=== PATIENT | male | born 1940 | race Caucasian/White ===

== ENCOUNTER 2018-04-05 12:33 | Emergency (ER) | payer MEDICARE, OTHER ==
--- NOTE | 2018-04-05 13:04 | ED Physician Documentation ---
PD HPI NVD - Stated complaint Stated Complaint: WEAKNESS - Chief complaint Chief Complaint: Cardiac - History obtained from History obtained from: Patient - History of Present Illness Timing - onset: Yesterday (he says he has not felt well for couple of weeks, with some indigestion. Reall main illness started yesterday with mid to lower abd pain, nausea and weakness.) Timing - duration: Days (The patient himself gives a poor history. He is somewhat confused and also distracted by his discomfort. His son-in-law supplements the history. The patient states he has not felt well for a week or 2 but is not able to describe it to well. Generally some heartburn and some bloating. However since yesterday is distinctly had general abdominal pain with nausea and some couple of episodes of vomiting. There has been at least one episode of diarrhea. He has felt chilled with some shaking but did not have a recorded fever per se. He has been urinating without any discomfort.) Timing - details: Gradual onset, Waxing and waning, Still present in ED Associated symptoms: Abdominal pain, Loss of appetite. No: Fever (but feels chills), Chest pain, Hematemesis, Melena Contributing factors: No: Sick contact, Bad food, Diabetes Worsened by: Moving, Palpation. No: Breathing Similar symptoms before: Has not had sx before Recently seen: Not recently seen Review of Systems Constitutional: reports: Chills, Myalgias. denies: Fever Nose: denies: Rhinorrhea / runny nose, Congestion Throat: denies: Sore throat Respiratory: denies: Cough GI: reports: Abdominal Pain, Nausea, Vomiting, Diarrhea (at least once overnight) : denies: Dysuria, Frequency Skin: denies: Rash, Lesions Neurologic: reports: Confused (which is not usual for him.). denies: Headache, Head injury PD PAST MEDICAL HISTORY - Past Medical History Cardiovascular: None, Arrhythmia Respiratory: None, Sleep apnea, CPAP use Endocrine/Autoimmune: None GI: GERD : Benign prostate hypertrophy HEENT: None Psych: None, Eating disorder Musculoskeletal: Chronic back pain Derm: None - Past Surgical History Past Surgical History: Yes General: Hiatal hernia repair Ortho: Shoulder arthroplasty, Spine surgery, Other HEENT: Cataracts, Tonsil/Adenoidectomy - Present Medications Home Medications: Ambulatory Orders Medication Instructions Recorded Confirmed Morphine Ir [Morphine] 15 mg PO BID PRN 07/06/13 04/05/18 Omeprazole [PriLOSEC] 20 mg PO BID 07/06/13 04/05/18 Aspirin Chewable [St Ko 81 mg ORAL DAILY 09/01/13 04/05/18 Aspirin] Darbepoetin Dennis in Polysorbat 1 mg PO MAINTENANCE.IV 11/16/14 11/16/14 [Aranesp] Apixaban [Eliquis] 04/05/18 Docusate Sodium 100 mg PO DAILY #30 capsule 04/05/18 - Allergies Allergies/Adverse Reactions: Allergies Allergy/AdvReac Type Severity Reaction Status Date / Time No Known Drug Allergies Allergy Verified 04/05/18 12:42 - Social History Does the pt smoke?: No Smoking Status: Former smoker Does the pt drink ETOH?: No Does the pt have substance abuse?: No - Immunizations Immunizations are current?: Yes PD ED PE NORMAL - Vitals Vital signs reviewed: Yes - General General: Well developed/nourished, Other (somewhat confused and distracted by discomfort; seems uncomfortable from abd pain. denies chest pain. ) - HEENT HEENT: Pharynx benign - Neck Neck: Supple, no meningeal sign, No adenopathy - Cardiac Cardiac: RRR, No murmur - Respiratory Respiratory: No respiratory distress, Clear bilaterally - Abdomen Abdomen: Normal bowel sounds, Soft, No organomegaly, Other (Generally tender but more so in the lower abdomen with some percussion tenderness but no other no obvious rebound tenderness. I do not feel fullness in the suprapubic area. There is no CVA tenderness. Bowel sounds are present and seem normal. I do not feel any hernias in the umbilical nor inguinal area.) - Male Male : Deferred - Rectal Rectal: Deferred - Back Back: No CVA TTP - Derm Derm: Normal color - Extremities Extremities: No tenderness to palpate, Normal ROM s pain, No edema, No calf tenderness / cord - Neuro Neuro: No motor deficit, Normal speech. No: Alert and oriented X 3 Results - Vitals Vitals: Oxygen O2 Source Room air - Labs Labs: Laboratory Tests 04/05/18 04/05/18 04/05/18 13:10 13:10 13:10 WBC 9.4 RBC 2.83 L Hgb 9.7 L Hct 29.3 L MCV 103.6 H MCH 34.4 H MCHC 33.2 RDW 22.9 H Plt Count 221 MPV 9.5 Neut # (Auto) 8.1 H Lymph # (Auto) 0.3 L [place] # (Auto) 0.9 Eos # (Auto) 0.0 Baso # (Auto) 0.1 Absolute Nucleated RBC 0.02 Nucleated RBC % 0.3 Manual Slide Review Indicated Platelet Estimate NORMAL (130-450,000) Platelet Morphology PLATELET CLUMPING RBC Morph Micro Appear 1+ MACROCYTOSIS Sodium 133 L Potassium 4.7 Chloride 102 Carbon Dioxide 24 Anion Gap 7.0 BUN 18 Creatinine 1.1 Estimated GFR (MDRD) 65 L Glucose 124 H Lactic Acid Calcium 8.6 Total Bilirubin 1.2 H AST 71 H ALT 75 H Alkaline Phosphatase 69 Troponin I < 0.04 Total Protein 7.5 Albumin 4.3 Globulin 3.2 Albumin/Globulin Ratio 1.3 Lipase 30 Urine Color Urine Clarity Urine pH Ur Specific [place] Urine Protein Urine Glucose (UA) Urine Ketones Urine Occult Blood Urine Nitrite Urine Bilirubin Urine Urobilinogen Ur Leukocyte Esterase Ur Microscopic Review Urine Culture Comments 04/05/18 04/05/18 13:38 14:10 WBC RBC Hgb Hct MCV MCH MCHC RDW Plt Count MPV Neut # (Auto) Lymph # (Auto) [place] # (Auto) Eos # (Auto) Baso # (Auto) Absolute Nucleated RBC Nucleated RBC % Manual Slide Review Platelet Estimate Platelet Morphology RBC Morph Micro Appear Sodium Potassium Chloride Carbon Dioxide Anion Gap BUN Creatinine Estimated GFR (MDRD) Glucose Lactic Acid 2.0 Calcium Total Bilirubin AST ALT Alkaline Phosphatase Troponin I Total Protein Albumin Globulin Albumin/Globulin Ratio Lipase Urine Color DARK YELLOW Urine Clarity CLEAR Urine pH 5.5 Ur Specific [place] 1.020 Urine Protein NEGATIVE Urine Glucose (UA) NEGATIVE Urine Ketones NEGATIVE Urine Occult Blood TRACE-INTA Urine Nitrite NEGATIVE Urine Bilirubin NEGATIVE Urine Urobilinogen 0.2 (NORMAL) Ur Leukocyte Esterase NEGATIVE Ur Microscopic Review NOT INDICATED Urine Culture Comments NOT INDICATED - Rads (name of study) abd/pelvic CT Radiology: Prelim report reviewed (no acute process. copious stool), See rad report PD MEDICAL DECISION MAKING - ED course Complexity details: reviewed results, considered differential (Consider appendicitis or diverticulitis. He reportedly has had a gallbladder surgery before. Consider urinary source as well and can check a urine test. I think given his pain and tenderness along with some confusion, we will check for sepsis and also lactate level and go to a CT scan of the abdomen. He has a history of A. fib but is not in fibrillation at this time. His EKG appears normal. He reportedly is anticoagulated on Eliquis.), d/w patient Departure - Departure Disposition: 01 Home, Self Care Clinical Impression: Abdominal pain Qualifiers: Abdominal location: lower abdomen, unspecified Qualified Code(s): R10.30 - Lower abdominal pain, unspecified Condition: Stable Record reviewed to determine appropriate education?: Yes Instructions: ED Abdominal Pain Unkn Cause Male Prescriptions: Docusate Sodium 100 mg PO DAILY #30 capsule Comments: Drink lots of fluids. Continue usual medications. Add docusate will softener daily for the next week or 2. Your [address] scan urine test and blood test did not show any obvious acute abnormalities. They did comment on a moderate amount of stool in the colon and rectum and so there may be some stomach pains and cramping related to some constipation. Add the docusate stool softener for that. Recheck if other symptoms develop over the next couple of days as there is the potential he could be starting with a viral illness or some other abnormality that just did not show up on the tests right now. Therefore please return if you're worsening. Discharge Date/Time: 04/05/18 17:42
[2018-04-05] MEDS ORDERED: MORPHINE 10 MG/ML VIAL IVP STA (13:18)
[2018-04-05] MEDS ORDERED: ONDANSETRON 4 MG/2 ML VIAL IVP STA (13:18)
[2018-04-05] MEDS ORDERED: SODIUM CHLORIDE 0.9% 1,000 ML IV ONE (13:18)
[2018-04-05 13:25] LABS: BASOPHILS # (AUTO) 0.1 10^3/uL (0.0-0.1); BASOPHILS % (AUTO) 0.6 %; EOSINOPHILS % (AUTO) 0.3 %; HGB - HEMOGLOBIN 9.7 g/dL (14.0-18.0); LYMPHOCYTES # (AUTO) 0.3 10^3/uL (1.5-3.5); LYMPHOCYTES % (AUTO) 3.3 %; MEAN CORPUSCULAR HEMOGLOBIN 34.4 pg (27.0-31.0); MEAN CORPUSCULAR HGB CONC 33.2 g/dL (32.0-36.0); MEAN CORPUSCULAR VOLUME 103.6 fL (80.0-94.0); MEAN PLATELET VOLUME 9.5 fL (7.4-11.4); MONOCYTES # (AUTO) 0.9 10^3/uL (0.0-1.0); MONOCYTES % (AUTO) 9.5 %; NEUTROPHILS # (AUTO) 8.1 10^3/uL (1.5-6.6); NEUTROPHILS % (AUTO) 86.3 %; PLT - PLATELET COUNT 221 10^3/uL (130-450); RED BLOOD COUNT 2.83 10^6/uL (4.70-6.10); RED CELL DISTRIBUTION WIDTH 22.9 % (12.0-15.0); WHITE BLOOD COUNT 9.4 x10^3/uL (4.8-10.8)
[2018-04-05 13:36] LABS: ALBUMIN 4.3 g/dL (3.2-5.5); ALBUMIN/GLOBULIN RATIO 1.3 (1.0-2.2); BILIRUBIN,TOTAL 1.2 mg/dL (0.2-1.0); CALCIUM 8.6 mg/dL (8.5-10.3); CREATININE 1.1 mg/dL (0.6-1.2); TOTAL PROTEIN 7.5 g/dL (6.7-8.2)
[2018-04-05 14:07] LABS: PLATELET ESTIMATE, MANUAL NORMAL (130-450,000) (NORMAL); PLATELET MORPHOLOGY PLATELET CLUMPING (NORMAL)
[2018-04-05] MEDS ORDERED: IOVERSOL 320 100 ML VIAL IVP ONE ×2 (14:45→15:09)
[2018-04-05 15:31] LABS: BILIRUBIN,URINE NEGATIVE (NEGATIVE); GLUCOSE, URINE (UA) NEGATIVE (NEGATIVE); KETONES,URINE (UA) NEGATIVE (NEGATIVE); LEUKOCYTE ESTERASE, URINE NEGATIVE (NEGATIVE); NITRITE,URINE NEGATIVE (NEGATIVE); OCCULT BLOOD,URINE TRACE-INTA (NEGATIVE); PH,URINE 5.5 PH (5.0-7.5); PROTEIN,URINE NEGATIVE (NEGATIVE); UROBILINOGEN,URINE 0.2 (NORMAL) E.U./dL (NORMAL)
--- NOTE | 2018-04-05 15:31 | CT Report ---
Reason: mid to lower abd pain for couple days Procedure Date: 04/05/2018 Accession Number: [id number] / [id number] Procedure: CT - Abdomen/Pelvis W/ CPT Code: FULL RESULT: EXAM: CT ABDOMEN AND PELVIS EXAM DATE: 04/05/2018 03:08 PM. CLINICAL HISTORY: Mid to lower abd pain for couple days. COMPARISONS: None available. TECHNIQUE: Routine helical CT imaging was performed through the abdomen and pelvis. IV contrast: 90 mL Optiray 320. Enteric contrast: No. Reconstructions: Coronal and sagittal. In accordance with CT protocol optimization, one or more of the following dose reduction techniques were utilized for this exam: automated exposure control, adjustment of mA and/or KV based on patient size, or use of iterative reconstructive technique. FINDINGS: Lung Bases: Unremarkable. Liver: Normal. No masses. Gallbladder/Bile Ducts: The gallbladder surgically absent. There is associated ectasia of the intrahepatic and extrahepatic bile ducts. Spleen: Mildly enlarged measuring 14.0 cm in AP diameter. Pancreas: Normal. Adrenal Glands: Normal. Kidneys: Symmetric renal perfusion. No hydronephrosis or nephrolithiasis. Probable peripelvic cyst in the left kidney measuring 3.4 x 3.2 cm. Probable tiny cortical cyst in the upper pole of the right kidney measuring 6 mm in diameter. Peritoneal Cavity/Bowel: Nonobstructive bowel gas pattern. Moderate volume stool throughout the colon and rectum, which is concentrated distally. The rectum is distended with solid stool. No free air or free fluid. Postoperative changes to the inguinal regions possibly from prior hernia repair. The appendix is well visualized and normal. Pelvic Organs: The prostate is enlarged measuring 4.5 x 6.8 x 6.0 cm. The urinary bladder appears unremarkable. Vasculature: Calcified plaque scattered throughout the abdominal aorta and iliac arteries without evidence of aneurysm. Bones: Degenerative disk disease throughout the lumbar spine. Mild multilevel degenerative facet arthropathy. Other: Spinal stimulator battery pack implanted in the left gluteal subcutaneous tissues. The device lead enters the spinal canal at L1-L2. IMPRESSION: Nonspecific mild splenomegaly. Prostatomegaly. Nonobstructive bowel gas pattern. Normal appendix. Rectal distention secondary to stool. RADIA
[2018-04-05 15:37] LABS: CLARITY,URINE CLEAR (CLEAR)
[2018-04-05] MEDS ORDERED: DOCUSATE SODIUM 100 MG CAPSULE PO STA (16:01)
[2018-04-05] MEDS ORDERED: KETOROLAC 15 MG/ML VIAL IVP STA (16:01)
[2018-04-05 17:34] VITALS: BP 91/42
== END 2018-04-05 17:42 | disposition home or self-care (01) ==
LOC: ED 12:33
DX: R10.30 Lower abdominal pain, unspecified (principal); Z79.82 Long term (current) use of aspirin; Z87.891 Personal history of nicotine dependence
CPT/HCPCS: 36415; 74177; 80053; 81003; 83605; 83690; 84484; 85025; 93005; 96361; 96374; 99283; 99284; A9270; Q9967; 81001; 87086

== ENCOUNTER 2020-06-12 16:31 | Outpatient (CLI) | payer MEDICARE, OTHER ==
--- NOTE | 2020-06-12 16:45 | XRAY Report ---
PROCEDURE: Chest 2 View X-Ray INDICATIONS: UPPER RESPIRATORY TRACT INFECTION TECHNIQUE: 2 view(s) of the chest. COMPARISON: None. FINDINGS: Surgical changes and devices: Thoracic spine neurostimulator lead. Lungs and pleura: No pleural effusions or pneumothorax. Increased opacification of the medial aspect of the right lung base concerning for pneumonia. Mediastinum: Mediastinal contours are normal. Heart size is normal. Bones and chest wall: No suspicious bony abnormalities. Soft tissues appear unremarkable. IMPRESSION: Subtle right basilar opacity concerning for pneumonia. Reviewed by: Alcira Jacobs MD, PhD on 06/12/2020 4:44 PM PDT Approved by: Alcira Jacobs MD, PhD on 06/12/2020 4:44 PM PDT Station ID: [id number]
== END 2020-06-12 16:32 | disposition home or self-care (01) ==
LOC: DI.S 16:31
PROVIDERS: ATTEND Family Medicine
DX: R91.8 Other nonspecific abnormal finding of lung field (principal)

== ENCOUNTER 2020-12-05 15:05 | Outpatient (CLI) | payer MEDICARE, OTHER | END 2020-12-05 15:06 | disposition home or self-care (01) | LOC: COV 15:05 | PROVIDERS: ATTEND General Practice | DX: Z01.812 Encounter for preprocedural laboratory examination (principal); C79.9 Secondary malignant neoplasm of unspecified site; Z20.822 Contact with and (suspected) exposure to COVID-19 ==

== ENCOUNTER 2022-07-19 12:57 | Emergency (ER) | payer MEDICARE, OTHER ==
--- NOTE | 2022-07-19 13:30 | ED Physician Documentation ---
PD HPI LOWER EXT INJURY - Stated complaint Stated Complaint: LT ANKLE LACERATION - Chief complaint Chief Complaint: Laceration - History obtained from History obtained from: Patient - Additional information Additional information: 81-year-old gentleman who is up-to-date on tetanus (08/26/2017) cut his medial left ankle with a chainsaw at home just prior to arrival. No other injuries. PD PAST MEDICAL HISTORY - Past Medical History Cardiovascular: None, Arrhythmia Respiratory: None, Sleep apnea, CPAP use Endocrine/Autoimmune: None GI: GERD : Benign prostate hypertrophy HEENT: None Psych: None, Eating disorder Musculoskeletal: Chronic back pain Derm: None - Past Surgical History Past Surgical History: Yes General: Hiatal hernia repair Ortho: Shoulder arthroplasty, Spine surgery, Other HEENT: Cataracts, Tonsil/Adenoidectomy - Present Medications Home Medications: Ambulatory Orders Medication Instructions Recorded Confirmed Morphine Ir [Morphine] 15 mg PO BID PRN 07/06/13 04/05/18 Omeprazole [PriLOSEC] 20 mg PO BID 07/06/13 04/05/18 Aspirin Chewable [St Ko 81 mg ORAL DAILY 09/01/13 04/05/18 Aspirin] Darbepoetin Dennis in Polysorbat 1 mg PO MAINTENANCE.IV 11/16/14 11/16/14 [Aranesp] Apixaban [Eliquis] 04/05/18 Docusate Sodium 100 mg PO DAILY #30 capsule 04/05/18 - Allergies Allergies/Adverse Reactions: Allergies Allergy/AdvReac Type Severity Reaction Status Date / Time No Known Drug Allergies Allergy Verified 07/19/22 13:13 - Social History Does the pt smoke?: No Smoking Status: Former smoker Does the pt drink ETOH?: No Does the pt have substance abuse?: No - Immunizations Immunizations are current?: Yes PD ED PE NORMAL - Vitals Vital signs reviewed: Yes - General General: Alert and oriented X 3, No acute distress - Extremities Extremities: Other (On the medial side of the left ankle there is a 3 to 4 cm laceration that goes in through skin but does not seem to go any deeper. Neurovascularly normal distal to this.) - Neuro Neuro: Alert and oriented X 3, Normal speech Results - Vitals Vitals: Vital Signs - 24 hr 07/19/22 13:14 Temperature 36.2 C L Heart Rate 68 Respiratory 16 Rate Blood Pressure 112/62 O2 Saturation 99 Oxygen O2 Source Room air Procedures - Laceration (location) Medial left ankle Length in cm: 3.5 Wound type: Linear, Into subcut fat Neurovascular status: Sensory intact, Motor intact, Vascular intact Tendon involvement: Tendon intact Anesthesia: Lidocaine 1%, With bicarb Wound preparation: Betadine, Irrigated copiously NS Skin layer closure: Nylon, Interrupted, Size #-0 - enter number (4-0), Sutures - enter # (9) Other: Patient tolerated well, No complications, Neurovascular intact, Tetanus UTD Departure - Departure Disposition: 01 Home, Self Care Clinical Impression: Laceration of left ankle Qualifiers: Encounter type: initial encounter Qualified Code(s): S91.012A - Laceration without foreign body, left ankle, initial encounter Condition: Good Instructions: ED Laceration Foot Comments: Come back for any signs of infection which would include: Redness, swelling, drainage, increased pain, or fevers. You can wash it soap and water. Keep it covered and moist with bacitracin ointment which is available over the counter; avoid neosporin. Follow-up with your physician in 14 days for suture removal.
[2022-07-19] MEDS: BUFFERED LIDOCAINE 10 ML SYRINGE SUBQ STA (13:34)
[2022-07-19 14:03] VITALS: BP 122/70
== END 2022-07-19 14:01 | disposition home or self-care (01) ==
LOC: ED 12:57
DX: S91.012A Laceration without foreign body, left ankle, initial encounter (principal); W29.3XXA Contact with powered garden and outdoor hand tools and machinery, initial encounter; Z87.891 Personal history of nicotine dependence
CPT/HCPCS: 12002; 99281

== ENCOUNTER 2023-03-02 10:47 | Outpatient (CLI) | payer MEDICARE, OTHER | END 2023-03-02 23:59 | disposition E | LOC: EMS 10:47 ==